=== PATIENT | female | born 1950 | race Caucasian/White ===

== ENCOUNTER 2018-04-02 10:11 | Outpatient (CLI) | payer MEDICARE | END 2018-04-02 10:12 | disposition home or self-care (01) | LOC: BICMAMMO 10:11 | PROVIDERS: ATTEND Specialist | DX: Z12.31 Encounter for screening mammogram for malignant neoplasm of breast (principal) | CPT/HCPCS: 77063; 77067 ==

== ENCOUNTER 2018-04-27 19:23 | Emergency (ER) | payer MEDICARE ==
[2018-04-27] MEDS ORDERED: Morphine 4 MG/ML VIAL ONE (20:49)
[2018-04-27] MEDS ORDERED: Ondansetron PF 4 MG/2 ML Vial ONE (20:50)
--- NOTE | 2018-04-27 21:13 | RAD ---
LEFT HIP TWO VIEWS: 04/27/18 HISTORY: Fall. Pain. Injury. FINDINGS: Contour of the femoral head is maintained. Hip joint space is preserved. No fracture. IMPRESSION: No fracture. POS: [facility]
--- NOTE | 2018-04-27 21:33 | RAD ---
ONE VIEW PELVIS: 04/27/18 HISTORY: Fall. Pain. COMPARISON: None. FINDINGS: Sacral ala are preserved. Sacroiliac joints are patent and symmetric. Intact bony pelvis. Contour of both femoral heads are maintained on this single projection and hip joint spaces are symmetric. IMPRESSION: No fracture. POS: [facility]
--- NOTE | 2018-04-27 21:34 | RAD ---
FOUR VIEWS LEFT KNEE: 04/27/18 HISTORY: Fall. Pain. FINDINGS: Joint spaces are preserved. There is no fracture or malalignment. No significant joint effusion. IMPRESSION: No fracture. POS: [facility]
--- NOTE | 2018-04-27 21:35 | RAD ---
LUMBAR SPINE THREE VIEWS: 04/27/18 HISTORY: Fall. Pain. COMPARISON: 07/16/08. FINDINGS: Five lumbar type vertebral bodies. Irregularity involving the anterior superior aspect of L3. Possibi lity of a fracture cannot be excluded. There is diffuse bone demineralization. IMPRESSION: Possible fracture involving the anterior superior aspect of L3. POS: [facility]
== END 2018-04-27 22:31 | disposition home or self-care (01) ==
LOC: ERS 19:23
DX: S32.039A Unspecified fracture of third lumbar vertebra, initial encounter for closed fracture (principal); E03.9 Hypothyroidism, unspecified; K21.9 Gastro-esophageal reflux disease without esophagitis; E78.5 Hyperlipidemia, unspecified; F31.9 Bipolar disorder, unspecified; F25.9 Schizoaffective disorder, unspecified; F42.9 Obsessive-compulsive disorder, unspecified; E78.1 Pure hyperglyceridemia; Z79.899 Other long term (current) drug therapy; W10.9XXA Fall (on) (from) unspecified stairs and steps, initial encounter
CPT/HCPCS: 72100; 72170; 96374; 96375; J2270; J2405

== ENCOUNTER 2018-07-18 11:34 | Emergency (ER) | payer MEDICARE ==
[2018-07-18] MEDS ORDERED: Bupivacaine 0.5% 10 ML VIAL ONE (11:58)
--- NOTE | 2018-07-18 12:12 | RAD ---
LEFT FOREARM 2 VIEWS: Date: 07/18/18 HISTORY: Fall with injury. FINDINGS: There is an impacted, mildly comminuted fracture distal radius. There is associated fracture of the u lnar styloid. The proximal and mid radius and ulna appear unremarkable. IMPRESSION: Fractures distal radius and ulna. POS: [facility]
== END 2018-07-18 13:00 | disposition home or self-care (01) ==
LOC: SCSER 11:34
DX: S52.502A Unspecified fracture of the lower end of left radius, initial encounter for closed fracture (principal); S52.612A Displaced fracture of left ulna styloid process, initial encounter for closed fracture; K21.9 Gastro-esophageal reflux disease without esophagitis; E03.9 Hypothyroidism, unspecified; E78.1 Pure hyperglyceridemia; F31.9 Bipolar disorder, unspecified; F25.9 Schizoaffective disorder, unspecified; F42.9 Obsessive-compulsive disorder, unspecified; Z79.899 Other long term (current) drug therapy; W18.09XA Striking against other object with subsequent fall, initial encounter
CPT/HCPCS: 29125; J3490

== ENCOUNTER 2018-07-20 15:45 | Emergency (ER) | payer MEDICARE ==
[2018-07-20] MEDS ORDERED: HYDROcodone/Acetaminophen 5/325 mg Tablet ONE (17:09)
[2018-07-20] MEDS ORDERED: Acetaminophen 325 MG TAB ONE (17:10)
[2018-07-20] MEDS ORDERED: Ondansetron ODT 4 MG TAB ONE (17:10)
== END 2018-07-20 18:03 | disposition home or self-care (01) ==
LOC: SCSER 15:45
DX: Z46.89 Encounter for fitting and adjustment of other specified devices (principal); E03.9 Hypothyroidism, unspecified; K21.9 Gastro-esophageal reflux disease without esophagitis; F42.9 Obsessive-compulsive disorder, unspecified; E78.1 Pure hyperglyceridemia; F20.9 Schizophrenia, unspecified; F31.9 Bipolar disorder, unspecified; Z79.899 Other long term (current) drug therapy; Z79.891 Long term (current) use of opiate analgesic
CPT/HCPCS: 29105; Q0162

== ENCOUNTER 2018-07-24 14:32 | Outpatient (CLI) | payer MEDICARE ==
[2018-07-24 16:28] LABS: #Basophils 0.1 thou/uL (0.0-0.2); #Eosinphils 0.1 thou/uL (0.0-0.7); #Lymphocytes 1.7 thou/uL (1.20-3.40); #Monocytes 0.5 thou/uL (0.11-0.59); #Neutrophils 6.2 thou/uL (1.40-6.50); %Basophils 0.6 % (0.0-1.0); %Eosinophils 1.4 % (0.0-10.0); %Lymphocytes 19.8 % (21.0-51.0); %Monocytes 5.4 % (0.0-10.0); %Neutrophils 72.9 % (42.0-75.0); Hemoglobin 12.6 g/dL (12.0-16.0); Mean Corpuscular Hemoglobin 30.9 pg (27.0-31.0); Mean Platelet Volume 7.6 fL (7.4-10.4); Platelet Count 329 thou/uL (130-400); Red Blood Cell (RBC) Count 4.06 mill/uL (4.20-5.40); White Blood Cell (WBC) Count 8.6 thou/uL (4.8-10.8)
[2018-07-24 16:39] LABS: Anion Gap 12 mmol/L (10-20); BUN (Urea Nitrogen) 15 mg/dL (9.8-20.1); Calc. Creatinine Clearance 0 mL/min (70-130); Calcium 9.5 mg/dL (7.8-10.44); Carbon Dioxide 24 mmol/L (23-31); Chloride 107 mmol/L (98-107); Estimated GFR-MDRD 74; Glucose 96 mg/dL (80-115); Potassium 4.4 mmol/L (3.5-5.1); Sodium 139 mmol/L (136-145)
--- NOTE | 2018-07-30 17:14 | EKG ---
Test Reason : Blood Pressure : / mmHG Vent. Rate : 071 BPM Atrial Rate : 071 BPM P-R Int : 142 ms QRS Dur : 094 ms QT Int : 426 ms P-R-T Axes : 061 075 071 degrees QTc Int : 462 ms Normal sinus rhythm Normal ECG When compared with ECG of 08-OCT-2001 10:34, QT has lengthened Confirmed by JENINFER DAVILA (2) on 07/30/2018 5:14:31 PM Referred By: NATALIE Confirmed By:JENNIFER DAVILA
== END 2018-07-24 14:33 | disposition home or self-care (01) ==
LOC: LABBT 14:32
PROVIDERS: ATTEND Orthopaedic Surgery
DX: Z01.818 Encounter for other preprocedural examination (principal); S52.92XA Unspecified fracture of left forearm, initial encounter for closed fracture
CPT/HCPCS: 80048; 85025; 93005; 93010

== ENCOUNTER 2018-07-26 07:40 | Day surgery (SDC) | payer MEDICARE ==
[2018-07-24 14:41] VITALS: BMI 30.5
[2018-07-26] MEDS ORDERED: Fentanyl 100 MCG/2 ML VIAL ONE ×2 (08:00→08:18)
[2018-07-26] MEDS ORDERED: Midazolam HCl 2 mg/2 ml Vial ONE (08:17)
[2018-07-26] MEDS ORDERED: Ondansetron PF 4 MG/2 ML Vial ONE (08:38)
[2018-07-26] MEDS ORDERED: Promethazine HCl 25 MG/ML VIAL IM PRN (08:51)
[2018-07-26] MEDS ORDERED: Ketorolac Tromethamine 30 MG/ML VIAL IVP PRN (08:51)
[2018-07-26] MEDS ORDERED: HYDROcodone/Acetaminophen 5/325 mg Tablet PO PRN ×2 (08:51)
[2018-07-26] MEDS ORDERED: traMADol HCl 50 MG TAB PO PRN ×2 (08:51)
[2018-07-26] MEDS ORDERED: Ropivacaine 0.2% 550 ML 550 ML NERVE BLCK SCH (08:51)
[2018-07-26] MEDS ORDERED: Ondansetron PF 4 MG/2 ML Vial IVP PRN (08:51)
[2018-07-26] MEDS ORDERED: Zolpidem Tartrate 5 MG TAB PO PRN (08:51)
--- NOTE | 2018-07-26 11:33 | OP ---
DATE OF PROCEDURE: 07/26/2018 PREOPERATIVE DIAGNOSIS: Left intra-articular distal radius fracture. POSTOPERATIVE DIAGNOSIS: Left intra-articular distal radius fracture. ANESTHESIA: General. BLOOD LOSS: Minimal. WIRE WINDER: Catalino Pascal PA-C. TOURNIQUET TIME: 26 minutes. DESCRIPTION OF PROCEDURE: The patient was taken to the operating room, where general anesthesia was induced. Left wrist was prepped and draped in a sterile fashion. After exsanguination, the tourniquet was inflated to 250 mmHg. I made an FCR approach. Dissection was carried down to the fracture. It was quite comminuted. I opened the cortex volarly like a [place] door and elevated the -punch lesion in the distal radius. This was then closed. The fracture was reduced and a 4-hole [employer] variable angle distal radius plate was applied. X-rays were obtained. Did have to change one screw early on, however, got a good anatomic reduction with the previously depressed fragment elevated. Tourniquet was released. Irrigation was performed. Hemostasis obtained. Subcu tissue was closed with 2-0 Vicryl, skin was closed with nylon. Sterile dressing was applied. The patient was placed in a splint. Job ID: [id number]
[2018-07-26] MEDS ORDERED: Promethazine HCl 25 MG/ML VIAL ONE (11:35)
[2018-07-26] MEDS ORDERED: Ketorolac Tromethamine 30 MG/ML VIAL ONE (11:39)
--- NOTE | 2018-07-26 14:58 | RAD ---
LEFT WRIST THREE VIEWS: History: Status post ORIF. Comparison: 07-18-18 forearm. FINDINGS: There is placement of a metal plate and screw stabilizing a comminuted distal radial fracture. In add ition, there is ulnar styloid process fracture. IMPRESSION: Comminuted distal radial fracture, stabilized with metal plate and screws. POS: [facility]
== END 2018-07-26 13:10 | disposition home or self-care (01) ==
LOC: SDC 07:40
PROVIDERS: ATTEND Orthopaedic Surgery
PROC: 0PSJ04Z Reposition Left Radius with Internal Fixation Device, Open Approach (ICD-10-PCS; principal; 2018-07-26)
DX: S52.572A Other intraarticular fracture of lower end of left radius, initial encounter for closed fracture (principal); F31.9 Bipolar disorder, unspecified; F41.9 Anxiety disorder, unspecified; J45.909 Unspecified asthma, uncomplicated; E78.5 Hyperlipidemia, unspecified; E07.9 Disorder of thyroid, unspecified; Z90.710 Acquired absence of both cervix and uterus; Z79.899 Other long term (current) drug therapy; Z98.890 Other specified postprocedural states; W01.0XXA Fall on same level from slipping, tripping and stumbling without subsequent striking against object, initial encounter
CPT/HCPCS: 25609; 73110; 76000; A4306; C1713; J1885; J2250; J2405; J2550; J2795; J3010

== ENCOUNTER 2019-05-27 09:21 | Outpatient (CLI) | payer MEDICARE ==
--- NOTE | 2019-05-27 10:03 | MMO ---
Bilateral MAMMO Bilat Screen [facility]. CLINICAL HISTORY: Patient is 68 years old and is seen for screening. The patient has no family history of breast cancer. The patient has no personal history of cancer. VIEWS: The views performed were: bilateral craniocaudal with tomosynthesis and bilateral mediolateral oblique with tomosynthesis. FILMS COMPARED: The present examination has been compared to prior imaging studies performed at [facility] on 12/02/2013, 05/11/2015, 08/18/2016 and 04/02/2018. This study has been interpreted with the assistance of computer-aided detection. MAMMOGRAM FINDINGS: There are scattered fibroglandular densities. There are no suspicious masses, suspicious calcifications, or new areas of architectural distortion. IMPRESSION: THERE IS NO MAMMOGRAPHIC EVIDENCE OF MALIGNANCY. A ROUTINE FOLLOW-UP MAMMOGRAM IN 1 YEAR IS RECOMMENDED. THE RESULTS OF THIS EXAM WERE SENT TO THE PATIENT. ACR BI-RADS Category 1 - Negative MAMMOGRAPHY NOTE: 1. A negative mammogram report should not delay a biopsy if a dominant of clinically suspicious mass is present. 2. Approximately 10% to 15% of breast cancers are not detected by mammography. 3. Adenosis and dense breasts may obscure an underlying neoplasm. Reported by: ZONIA CABA MD Electonically Signed: [id number]
== END 2019-05-27 09:22 | disposition home or self-care (01) ==
LOC: BICMAMMO 09:21
PROVIDERS: ATTEND Specialist
DX: Z12.31 Encounter for screening mammogram for malignant neoplasm of breast (principal)
CPT/HCPCS: 77063; 77067

== ENCOUNTER 2020-05-04 10:52 | Outpatient (CLI) | payer MEDICARE, OTHER ==
--- NOTE | 2020-05-04 13:14 | BD ---
DEXA BONE DENSITY STUDY: Date: 05/04/2019 HISTORY: Postmenopausal. FINDINGS: Lumbar Spine: BMD (g/cm2) L1 0.670 T-Score: -2.9 L2 0.755 T-Score: -2.5 L3 0.927 T-Score: -1.4 L4 0.737 T-Score: -2.9 Total 0.772 T-Score: -2.5 Left Femoral Neck: 0.662 T-Score: -1.7 Total Femur: 0.724 T-Score: -1.8 IMPRESSION: Osteoporosis of the lumbar spine and osteopenia of the left femoral neck. POS: [facility]
== END 2020-05-04 10:53 | disposition home or self-care (01) ==
LOC: BICMAMMO 10:52
PROVIDERS: ATTEND Specialist
DX: M81.0 Age-related osteoporosis without current pathological fracture (principal); M85.852 Other specified disorders of bone density and structure, left thigh
CPT/HCPCS: 77080

== ENCOUNTER 2020-06-02 08:52 | Outpatient (CLI) | payer MEDICARE, OTHER ==
--- NOTE | 2020-06-02 09:49 | MMO ---
Bilateral MAMMO Bilat Screen [facility]. CLINICAL HISTORY: Patient is 69 years old and is seen for screening. The patient has no family history of breast cancer. The patient has no personal history of cancer. VIEWS: The views performed were: bilateral craniocaudal with tomosynthesis and bilateral mediolateral oblique with tomosynthesis. FILMS COMPARED: The present examination has been compared to prior imaging studies performed at [facility] on 05/11/2015, 08/18/2016, 04/02/2018 and 05/27/2019. This study has been interpreted with the assistance of computer-aided detection. MAMMOGRAM FINDINGS: There are scattered fibroglandular densities. There are stable benign appearing calcifications seen in both breasts. There are no suspicious masses, suspicious calcifications, or new areas of architectural distortion. IMPRESSION: THERE IS NO MAMMOGRAPHIC EVIDENCE OF MALIGNANCY. A ROUTINE FOLLOW-UP MAMMOGRAM IN 1 YEAR IS RECOMMENDED. THE RESULTS OF THIS EXAM WERE SENT TO THE PATIENT. ACR BI-RADS Category 2 - Benign finding MAMMOGRAPHY NOTE: 1. A negative mammogram report should not delay a biopsy if a dominant of clinically suspicious mass is present. 2. Approximately 10% to 15% of breast cancers are not detected by mammography. 3. Adenosis and dense breasts may obscure an underlying neoplasm. Reported by: KAREEM SANCHEZ MD Electonically Signed: [id number]
== END 2020-06-02 08:53 | disposition home or self-care (01) ==
LOC: BICMAMMO 08:52
PROVIDERS: ATTEND Specialist
DX: Z12.31 Encounter for screening mammogram for malignant neoplasm of breast (principal)
CPT/HCPCS: 77063; 77067

== ENCOUNTER 2021-06-15 09:44 | Outpatient (CLI) | payer MEDICARE | END 2021-06-15 09:45 | disposition home or self-care (01) | LOC: BICMAMMO 09:44 | PROVIDERS: ATTEND Specialist | DX: Z12.31 Encounter for screening mammogram for malignant neoplasm of breast (principal); Z13.820 Encounter for screening for osteoporosis; M81.0 Age-related osteoporosis without current pathological fracture; M85.851 Other specified disorders of bone density and structure, right thigh; M85.852 Other specified disorders of bone density and structure, left thigh | CPT/HCPCS: 77063; 77067; 77080 ==

== ENCOUNTER 2022-08-23 08:37 | Outpatient (CLI) | payer MEDICARE | END 2022-08-23 08:38 | disposition home or self-care (01) | LOC: BICMAMMO 08:37 | PROVIDERS: ATTEND Specialist | DX: Z12.31 Encounter for screening mammogram for malignant neoplasm of breast (principal) | CPT/HCPCS: 77063; 77067 ==

== ENCOUNTER 2022-10-12 08:16 | Outpatient (CLI) | payer MEDICARE | END 2022-10-12 08:17 | disposition home or self-care (01) | LOC: BICMAMMO 08:16 | PROVIDERS: ATTEND Specialist | DX: Z13.820 Encounter for screening for osteoporosis (principal); M81.0 Age-related osteoporosis without current pathological fracture; M85.851 Other specified disorders of bone density and structure, right thigh; M85.852 Other specified disorders of bone density and structure, left thigh | CPT/HCPCS: 77080 ==

== ENCOUNTER 2023-09-21 09:30 | Outpatient (CLI) | payer MEDICARE | END 2023-09-21 09:31 | disposition home or self-care (01) | LOC: BICMAMMO 09:30 | PROVIDERS: ATTEND Specialist | DX: Z12.31 Encounter for screening mammogram for malignant neoplasm of breast (principal) | CPT/HCPCS: 77063; 77067 ==

== ENCOUNTER 2024-11-27 08:46 | Outpatient (CLI) | payer MEDICARE | END 2024-11-27 08:47 | disposition home or self-care (01) | LOC: BICMAMMO 08:46 | PROVIDERS: ATTEND Specialist | DX: Z13.820 Encounter for screening for osteoporosis (principal); M81.0 Age-related osteoporosis without current pathological fracture; M85.89 Other specified disorders of bone density and structure, multiple sites | CPT/HCPCS: 77080 ==